=== PATIENT | male | born 1970 | race African-American/Black ===

== ENCOUNTER 2017-08-29 04:41 | Emergency (ER) | payer MEDICAID ==
[2017-08-29] MEDS ORDERED: FENTANYL CITRATE INJ/PF 100 MCG/2 ML AMPUL ONE (04:47)
[2017-08-29] MEDS ORDERED: CEFAZOLIN 1 GM/D5W RTU 1 GM/50 ML RTUPB IV ONE (04:47)
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
[2017-08-29] MEDS ORDERED: CEFAZOLIN 2 GM/D5W RTU 2 GM/50 ML RTUPB IV ONE (05:44)
[2017-08-29] MEDS ORDERED: DIPH/PERTUSS(ACELL)/TETANUS VAC/PF 0.5 ML SYR (>=10YO) IM ONE (05:45)
[2017-08-29] MEDS ORDERED: FENTANYL CITRATE INJ/PF 100 MCG/2 ML AMPUL IV ONE ×2 (05:45→06:01)
[2017-08-29 07:07] VITALS: BP 148/99
== END 2017-08-29 07:08 | disposition home or self-care (01) ==
LOC: ER 04:41
PROC: 2W3QX1Z Immobilization of Right Lower Leg using Splint (ICD-10-PCS; principal; 2017-08-29)
DX: S86.001A Unspecified injury of right Achilles tendon, initial encounter (principal); W34.00XA Accidental discharge from unspecified firearms or gun, initial encounter
CPT/HCPCS: 99283; 96372; 90471; 96365; 73590; 90715; 29515; J0690; J3010

== ENCOUNTER → 2017-09-22 | Outpatient (CLI) | payer MEDICAID ==
--- NOTE | 2017-09-22 20:17 | RADIOLOGY REPORT (SQ) ---
EXAM DESCRIPTION: U/S EXTREMITY NONVASCULAR COMP COMPLETED DATE/TIME: 09/22/2017 6:55 pm REASON FOR STUDY: FRACTRURE OF RIGHT LATERAL MALLEOLUS S82.64XA NONDISP FX OF LATERAL MALLEOLUS OF RIGHT FIBULA, IN COMPARISON: None. TECHNIQUE: Dynamic and static grayscale images acquired of the localized site of clinical concern an d recorded on PACS. Additional selected color Doppler and spectral images recorded. SITE OF CONCERN: Soft tissues of the left ankle. LIMITATIONS: None. FINDINGS: SKIN AND SUBCUTANEOUS TISSUES: Edema in the subcutaneous soft tissues. No focal fluid col lection. No masses. DEEP SOFT TISSUES/MUSCLES: No masses. No fluid collections. No edema. VASCULAR: No increased or decreased vascularity. No occlusions. OTHER: No other significant finding. IMPRESSION: SUBCUTANEOUS SOFT TISSUE EDEMA. NO EVIDENCE OF ABSCESS OR OTHER FOCAL FINDINGS. TECHNICAL DOCUMENTATION: JOB ID: [id number] [employer]- All Rights Reserved
== END ==
LOC: RAD 17:43
PROVIDERS: ATTEND Orthopaedic Surgery
DX: S82.64XA Nondisplaced fracture of lateral malleolus of right fibula, initial encounter for closed fracture (principal); X58.XXXA Exposure to other specified factors, initial encounter
CPT/HCPCS: 76881

== ENCOUNTER 2018-07-08 21:08 | Inpatient (IN) | payer MEDICAID ==
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
[2018-07-08 22:54] LABS: ABSOLUTE BASOPHILS # (AUTO) 0.1 10^3/uL (0.0-0.2); ABSOLUTE EOSINOPHILS # (AUTO) 0.1 10^3/uL (0.0-0.6); ABSOLUTE LYMPHOCYTES (AUTO) 2.1 10^3/uL (0.5-4.7); ABSOLUTE MONOCYTES (AUTO) 0.3 10^3/uL (0.1-1.4); ABSOLUTE NEUT (AUTO) 4.2 10^3/uL (1.7-8.2); BASOPHILS % (AUTO) 1.2 % (0-2); EOSINOPHILS % (AUTO) 1.4 % (0-6); HEMOGLOBIN 12.7 g/dL (13.5-17.0); MEAN CORPUSCULAR HEMOGLOBIN 27.7 pg (27.0-33.4); MEAN CORPUSCULAR HGB CONC 33.3 g/dL (32.0-36.0); MEAN CORPUSCULAR VOLUME 83 fl (80-97); MONOCYTES % (AUTO) 4.2 % (3-13); PLATELET COUNT 238 10^3/uL (150-450); RED BLOOD COUNT 4.57 10^6/uL (4.35-5.55); RED CELL DISTRIBUTION WIDTH 14.8 % (11.5-14.0); SEGMENTED NEUTROPHILS % (AUTO) 62.2 % (42-78); TOTAL CELLS COUNTED % (AUTO) 100 %; WHITE BLOOD COUNT 6.7 10^3/uL (4.0-10.5)
--- NOTE | 2018-07-08 23:07 | RADIOLOGY REPORT (SQ) ---
EXAM DESCRIPTION: XR CHEST 1 VIEW COMPLETED DATE/TME: 07/08/2018 22:17 CLINICAL HISTORY: 47 years Male, Cough and shortness of breath COMPARISON: 9.19.16 FINDINGS: Adequate lung volume, small left basilar opacity, mildly enlarged cardiac silhouette, left cardiac stimulator with leads. Intact bony thorax. IMPRESSION: Small left basilar atelectasis/pneumonia.
[2018-07-08 23:10] LABS: ANION GAP 8 (5-19); BLOOD UREA NITROGEN 9 mg/dL (7-20); CALCIUM 9.3 mg/dL (8.4-10.2); CARBON DIOXIDE 26 mmol/L (22-30); CHLORIDE 106 mmol/L (98-107); GLUCOSE 132 mg/dL (75-110); POTASSIUM 3.7 mmol/L (3.6-5.0); SODIUM 140.1 mmol/L (137-145)
[2018-07-08] MEDS ORDERED: LEVOFLOXACIN 750 MG TABLET PO ONE (23:19)
[2018-07-08] MEDS ORDERED: FUROSEMIDE INJ/PF 40 MG/4 ML SDV IV ONE (23:55)
[2018-07-09] MEDS ORDERED: CLONIDINE HCL 0.1 MG TABLET PO PRN (03:27)
[2018-07-09] MEDS ORDERED: MORPHINE SULFATE 10 MG/ML INJ IV PRN (03:31)
[2018-07-09] MEDS ORDERED: ONDANSETRON HCL INJ/PF 4 MG/2 ML SDV IV PRN (03:32)
[2018-07-09] MEDS ORDERED: ACETAMINOPHEN 325 MG TABLET PO PRN (03:32)
[2018-07-09] MEDS ORDERED: OXYCODONE-ACETAMINOPHEN 5-325 MG TABLET PO PRN (03:34)
[2018-07-09] MEDS ORDERED: ZOLPIDEM TARTRATE 5 MG TABLET PO PRN (03:36)
[2018-07-09] MEDS ORDERED: LEVOFLOXACIN 500 MG/D5W RTU 500 MG/100 ML RTUPB IV ONE (04:00)
[2018-07-09 05:10] LABS: ALANINE AMINOTRANSFERASE 79 U/L (21-72); ALBUMIN 3.9 g/dL (3.5-5.0); ALKALINE PHOSPHATASE 102 U/L (38-126); ANION GAP 10 (5-19); ASPARTATE AMINO TRANSFERASE 40 U/L (17-59); BILIRUBIN,DIRECT 0.3 mg/dL (0.0-0.4); BILIRUBIN,TOTAL 0.5 mg/dL (0.2-1.3); BLOOD UREA NITROGEN 10 mg/dL (7-20); CALCIUM 9.1 mg/dL (8.4-10.2); CARBON DIOXIDE 27 mmol/L (22-30); CHLORIDE 106 mmol/L (98-107); CHOLESTEROL 195.39 mg/dL (0-200); GLUCOSE 100 mg/dL (75-110); POTASSIUM 3.2 mmol/L (3.6-5.0); SODIUM 142.6 mmol/L (137-145); TOTAL PROTEIN 7.2 g/dL (6.3-8.2); TRIGLYCERIDES 127 mg/dL (<150)
[2018-07-09 05:14] LABS: MEAN CORPUSCULAR HEMOGLOBIN 27.6 pg (27.0-33.4); MEAN CORPUSCULAR HGB CONC 33.3 g/dL (32.0-36.0); MEAN CORPUSCULAR VOLUME 83 fl (80-97); PLATELET COUNT 221 10^3/uL (150-450); RED BLOOD COUNT 4.72 10^6/uL (4.35-5.55); RED CELL DISTRIBUTION WIDTH 14.3 % (11.5-14.0); WHITE BLOOD COUNT 6.9 10^3/uL (4.0-10.5)
[2018-07-09 05:24] LABS: CREATINE KINASE MB 0.62 ng/mL (<4.55); DIRECT LDL 124 mg/dL (<100); TROPONIN I 0.039 ng/mL
[2018-07-09] MEDS: LANSOPRAZOLE 30 MG TAB.RAP.DR PO SCH (09:52)
[2018-07-09] MEDS: DOCUSATE SODIUM 100 MG CAPSULE PO SCH (09:52)
[2018-07-09] MEDS: NICOTINE 21 MG/24 HR PATCH.TD24 TD SCH (09:52)
[2018-07-09] MEDS: ENOXAPARIN SODIUM INJ 40 MG/0.4 ML DISP.SYRIN SUBCUT SCH ×2 (09:52→10:38)
[2018-07-09] MEDS: FUROSEMIDE INJ/PF 20 MG/2 ML SDV IV SCH (09:53)
[2018-07-09 11:29] LABS: CREATINE KINASE MB 0.52 ng/mL (<4.55); TROPONIN I 0.04 ng/mL
--- NOTE | 2018-07-09 16:31 | PDOC H&P ---
History of Present Illness Admission Date/PCP: 07/09/18 00:08 THAO MARTINEZ Patient complains of: Dyspnea, Chest pain- pleuritic, cough with congestion for 3 days. History of Present Illness: LOLY SHEIKH is a 47 year old male with hx of HTN/Hyperlipidemia/Chronic ischemic heart disease s.p ICD/Pacemaker/Back pain/OA/Depression/Chronic smoker , who started having dyspnea, pleuritic chest pain, cough with congestion about 3 days ago. Hed denied fever, palpitations, dizziness, syncope, leg swelling. On account of worsening of symptoms, he came to ER for evaluation and and mgt. Past Medical History Cardiac Medical History: Reports: Myocardial Infarction - left ventracal enlargement, Hyperlipidema, Hypertension Musculoskeltal Medical History: Reports: Arthritis Past Surgical History Past Surgical History: Reports: Orthopedic Surgery - right shoulder / right ankle Social History Smoking Status: Current Every Day Smoker Cigarettes Packs Per Day: 1 Number of Years Smokin Last Time Smoked: 07/08/2018 Frequency of Alcohol Use: Heavy Drugs: Marijuana Hx Prescription Drug Abuse: No Family History Family History: Reviewed & Not Pertinent Parental Family History Reviewed: Yes Children Family History Reviewed: Yes Sibling(s) Family History Reviewed.: Yes Medication/Allergy Home Medications: Amlodipine Besylate [Norvasc 10 mg Tablet] 10 mg PO DAILY 07/09/18 Butalb/Acetaminophen/Caffeine [Ayvrih-Tfdlzhro-Snqq 50-325-40] 1 tab PO Q12HP PRN 07/09/18 Carvedilol [Coreg 25 mg Tablet] 25 mg PO Q12 07/09/18 Furosemide [Lasix 20 mg Tablet] 20 mg PO DAILYP PRN 07/09/18 Lisinopril [Prinivil] 40 mg PO DAILY 07/09/18 Oxycodone HCl/Acetaminophen [Endocet 7.5-325 mg Tablet] 1 tab PO Q6HP PRN Rosuvastatin Calcium [Crestor 5 mg Tablet] 5 mg PO DAILY 07/09/18 Spironolactone [Aldactone 25 mg Tablet] 25 mg PO DAILY 07/09/18 Zolpidem Tartrate [Ambien 5 mg Tablet] 5 mg PO QHS 07/09/18 Allergies/Adverse Reactions: acetaminophen [From Vicodin] Allergy (Verified 01/30/14 15:28) aspirin [Aspirin] Allergy (Verified 01/30/14 15:28) hydrocodone bitartrate [From Vicodin] Allergy (Verified 01/30/14 15:28) ibuprofen [From Motrin] Allergy (Verified 01/30/14 15:28) Penicillins Allergy (Verified 01/30/14 15:28) Review of Systems Constitutional: PRESENT: as per HPI Eyes: PRESENT: as per HPI Ears: PRESENT: as per HPI Nose, Mouth, and Throat: PRESENT: as per HPI Cardiovascular: PRESENT: chest pain, dyspnea on exertion Respiratory: PRESENT: cough Gastrointestinal: PRESENT: as per HPI Genitourinary: PRESENT: as per HPI Integumentary: PRESENT: as per HPI Neurological: PRESENT: as per HPI Psychiatric: PRESENT: as per HPI Hematologic/Lymphatic: PRESENT: as per HPI Physical Exam Vital Signs: Temp Pulse Resp BP Pulse Ox 98.5 F 71 18 120/86 H 95 07/09/18 11:55 07/09/18 14:00 07/09/18 11:55 07/09/18 11:55 07/09/18 11:55 Intake & Output 07/08/18 07/09/18 07/10/18 06:59 06:59 06:59 Intake Total 575 Output Total 800 Balance -800 575 Weight 87.4 kg Results Laboratory Results: 07/09/18 04:30 07/09/18 04:30 07/09/18 07/09/18 07/09/18 04:30 04:30 04:30 WBC 6.9 RBC 4.72 Hgb 13.0 L Hct 39.0 MCV 83 MCH 27.6 MCHC 33.3 RDW 14.3 H Plt Count 221 Sodium 142.6 Potassium 3.2 L Chloride 106 Carbon Dioxide 27 Anion Gap 10 BUN 10 Creatinine 1.08 Est GFR ( Amer) > 60 Est GFR (Non-Af Amer) > 60 Glucose 100 Calcium 9.1 Total Bilirubin 0.5 AST 40 ALT 79 H Alkaline Phosphatase 102 Total Protein 7.2 Albumin 3.9 Triglycerides 127 Cholesterol 195.39 LDL Cholesterol Direct 124 H VLDL Cholesterol 25.0 HDL Cholesterol 35 L TSH 1.26 07/09/18 07/09/18 07/09/18 04:30 04:30 10:40 Creatine Kinase 121 103 CK-MB (CK-2) 0.62 Troponin I 0.039 07/09/18 10:40 Creatine Kinase CK-MB (CK-2) 0.52 Troponin I 0.040 Impressions: Chest X-Ray 07/08/18 22:17 IMPRESSION: Small left basilar atelectasis/pneumonia. Assessment & Plan - Diagnosis (1) Pneumonia Qualifiers: Pneumonia type: due to other aerobic Gram-negative bacteria Laterality: left Lung location: lower lobe of lung Qualified Code(s): J15.6 - Pneumonia due to other Gram-negative bacteria Plan: Ct with Levaquin 500 mg daily IV; Tyenol 650 mg q6h prn po; Sputum culture if possible. (2) Acute pulmonary edema Is this a current diagnosis for this admission?: Yes Plan: Ct with Lasix 20 mg daily IV; Morphine 2 mg q4h IV prn; Oxygen by N/C 2 L/min to keep saturation >92%; F/U ECHO report; F/U cardiology consult with Dr Macdonald. (3) Hypertension Qualifiers: Hypertension type: essential hypertension Qualified Code(s): I10 - Essential (primary) hypertension Is this a current diagnosis for this admission?: Yes Plan: Ct with Lisinopril 20 mg qd po; Coreg 25 mg BID PO;Amlodipine 10 mg qd pO; Clonidine 0.1 mg q4h prn po; 2 g sodium diet. (4) Hyperlipidemia Qualifiers: Hyperlipidemia type: mixed hyperlipidemia Qualified Code(s): E78.2 - Mixed hyperlipidemia Is this a current diagnosis for this admission?: Yes Plan: Switch to Atorvastatin 10 mg qhs po since we do not have Crestor in our formulary; 200 mg cholesterol diet. (5) Chronic ischemic heart disease Is this a current diagnosis for this admission?: Yes Plan: Pt is s.p ICD/Pacemaker; Ct with Spironolactone 25 mg qd po; F/u ECHO report; f /u human resources operations specialist, Dr Macdonald. (6) Back pain Qualifiers: Back pain laterality: unspecified Is this a current diagnosis for this admission?: Yes Plan: Ct with Percocet 5/325 mg q6h po prn. (7) Depression Qualifiers: Depression Type: unspecified Qualified Code(s): F32.9 - Major depressive disorder, single episode, unspecified Is this a current diagnosis for this admission?: Yes Plan: Ct with Zoloft 50 mg qd po. (8) Smoker Is this a current diagnosis for this admission?: Yes Plan: Nicotine patch 21 mg daily. (9) DVT prophylaxis Is this a current diagnosis for this admission?: Yes Plan: Ct with Lovenox 40 mg daily subcut. SCD. - Time Time Spent: 30 to 50 Minutes Smoking Cessation Education: 3 to 10 minutes Medications reviewed and adjusted accordingly: Yes Anticipated discharge: Home Within: within 72 hours - Inpatient Certification Medical Necessity: Failure to Improve With Outpatient Therapy, Need Close Monitoring Due to Risk of Patient Decompensation, Need For Continuous Telemetry Monitoring, Need for Pain Control, Need for IV Antibiotics, Risk of Complication if Not Cared For in Hospital, Risk of Diagnosis Which Will Require Inpatient Eval/Care/Monitoring
[2018-07-09] MEDS ORDERED: POTASSI CL 20 MEQ/50 ML RIDER 20 MEQ/50 ML RTUPB IV SCH (17:30)
[2018-07-09] MEDS ORDERED: POTASSIUM CHLORIDE 10 MEQ CAPSULE.ER PO ONE (19:00)
--- NOTE | 2018-07-09 21:06 | EKG REPORT ---
SEVERITY:- ABNORMAL ECG - SINUS RHYTHM PROBABLE LEFT ATRIAL ABNORMALITY LVH WITH SECONDARY REPOLARIZATION ABNORMALITY : Confirmed by: Kaia Flores MD 09-Jul-2018 21:05:57
--- NOTE | 2018-07-09 21:06 | EKG REPORT ---
SEVERITY:- ABNORMAL ECG - SINUS RHYTHM ATRIAL PREMATURE COMPLEX PROBABLE LEFT ATRIAL ABNORMALITY LVH WITH SECONDARY REPOLARIZATION ABNORMALITY BORDERLINE PROLONGED QT INTERVAL : Confirmed by: Kaia Flores MD 09-Jul-2018 21:05:52
--- NOTE | 2018-07-09 21:06 | EKG REPORT ---
SEVERITY:- ABNORMAL ECG - SINUS RHYTHM PROBABLE LEFT ATRIAL ABNORMALITY LVH WITH SECONDARY REPOLARIZATION ABNORMALITY BORDERLINE PROLONGED QT INTERVAL : Confirmed by: Kaia Flores MD 09-Jul-2018 21:06:01
[2018-07-09] MEDS: CARVEDILOL 12.5 MG TABLET PO SCH (21:44)
[2018-07-09] MEDS ORDERED: ATORVASTATIN CALCIUM 10 MG TABLET PO SCH (22:00)
[2018-07-10 05:03] LABS: ABSOLUTE BASOPHILS # (AUTO) 0.1 10^3/uL (0.0-0.2); ABSOLUTE EOSINOPHILS # (AUTO) 0.2 10^3/uL (0.0-0.6); ABSOLUTE LYMPHOCYTES (AUTO) 2.2 10^3/uL (0.5-4.7); ABSOLUTE MONOCYTES (AUTO) 0.6 10^3/uL (0.1-1.4); ABSOLUTE NEUT (AUTO) 4.5 10^3/uL (1.7-8.2); EOSINOPHILS % (AUTO) 3.1 % (0-6); HEMATOCRIT 39.5 % (37.9-51.0); HEMOGLOBIN 13.3 g/dL (13.5-17.0); LYMPHOCYTES % (AUTO) 28.8 % (13-45); MEAN CORPUSCULAR HEMOGLOBIN 27.8 pg (27.0-33.4); MEAN CORPUSCULAR HGB CONC 33.6 g/dL (32.0-36.0); MEAN CORPUSCULAR VOLUME 83 fl (80-97); MONOCYTES % (AUTO) 7.8 % (3-13); PLATELET COUNT 229 10^3/uL (150-450); RED BLOOD COUNT 4.79 10^6/uL (4.35-5.55); RED CELL DISTRIBUTION WIDTH 14.3 % (11.5-14.0); SEGMENTED NEUTROPHILS % (AUTO) 59.3 % (42-78); TOTAL CELLS COUNTED % (AUTO) 100 %; WHITE BLOOD COUNT 7.7 10^3/uL (4.0-10.5)
[2018-07-10 05:28] LABS: ALANINE AMINOTRANSFERASE 59 U/L (21-72); ALBUMIN 3.7 g/dL (3.5-5.0); ALKALINE PHOSPHATASE 89 U/L (38-126); ANION GAP 9 (5-19); ASPARTATE AMINO TRANSFERASE 25 U/L (17-59); BILIRUBIN,DIRECT 0.4 mg/dL (0.0-0.4); BILIRUBIN,TOTAL 0.4 mg/dL (0.2-1.3); BLOOD UREA NITROGEN 12 mg/dL (7-20); CALCIUM 9.4 mg/dL (8.4-10.2); CARBON DIOXIDE 26 mmol/L (22-30); CHLORIDE 108 mmol/L (98-107); GLUCOSE 109 mg/dL (75-110); POTASSIUM 3.9 mmol/L (3.6-5.0); TOTAL PROTEIN 6.6 g/dL (6.3-8.2)
[2018-07-10] MEDS ORDERED: LEVOFLOXACIN 500 MG/D5W RTU 500 MG/100 ML RTUPB IV SCH (08:00)
[2018-07-10] MEDS: DOCUSATE SODIUM 100 MG CAPSULE PO SCH (09:20)
[2018-07-10] MEDS: LANSOPRAZOLE 30 MG TAB.RAP.DR PO SCH (09:20)
[2018-07-10] MEDS: FUROSEMIDE INJ/PF 20 MG/2 ML SDV IV SCH (09:21)
[2018-07-10] MEDS: CARVEDILOL 12.5 MG TABLET PO SCH (09:21)
[2018-07-10] MEDS: NICOTINE 21 MG/24 HR PATCH.TD24 TD SCH (09:22)
[2018-07-10] MEDS: ENOXAPARIN SODIUM INJ 40 MG/0.4 ML DISP.SYRIN SUBCUT SCH (09:22)
[2018-07-10] MEDS ORDERED: SERTRALINE HCL 50 MG TABLET PO SCH (10:00)
[2018-07-10] MEDS ORDERED: LISINOPRIL 10 MG TABLET PO SCH (10:00)
[2018-07-10] MEDS ORDERED: AMLODIPINE BESYLATE 10 MG TABLET PO SCH (10:00)
[2018-07-10] MEDS ORDERED: SPIRONOLACTONE 25 MG TABLET PO SCH (10:00)
[2018-07-10 11:07] VITALS: BP 125/90
--- NOTE | 2018-07-10 13:08 | PDOC DISCHARGE SUMMARY ---
General - Admit/Disc Date/PCP Admission Date/Primary Care Provider: 07/09/18 00:08 THAO MARTINEZ Discharge Date: 07/10/18 - Discharge Diagnosis (1) Chronic ischemic heart disease Is this a current diagnosis for this admission?: Yes (2) Hyperlipidemia Is this a current diagnosis for this admission?: Yes (4) Smoker Is this a current diagnosis for this admission?: Yes - Additional Information Discharge Diet: As Tolerated Discharge Activity: Activity As Tolerated Prescriptions: Levofloxacin [Levaquin 750 mg Tablet] 750 mg PO DAILY #5 tablet Home Medications: Amlodipine Besylate [Norvasc 10 mg Tablet] 10 mg PO DAILY 07/09/18 Butalb/Acetaminophen/Caffeine [Iwrrcw-Tjjzlirf-Thad 50-325-40] 1 tab PO Q12HP PRN 07/09/18 Carvedilol [Coreg 25 mg Tablet] 25 mg PO Q12 07/09/18 Furosemide [Lasix 20 mg Tablet] 20 mg PO DAILYP PRN 07/09/18 Lisinopril [Prinivil] 40 mg PO DAILY 07/09/18 Oxycodone HCl/Acetaminophen [Endocet 7.5-325 mg Tablet] 1 tab PO Q6HP PRN Rosuvastatin Calcium [Crestor 5 mg Tablet] 5 mg PO DAILY 07/09/18 Spironolactone [Aldactone 25 mg Tablet] 25 mg PO DAILY 07/09/18 Zolpidem Tartrate [Ambien 5 mg Tablet] 5 mg PO QHS 07/09/18 Levofloxacin [Levaquin 750 mg Tablet] 750 mg PO DAILY #5 tablet 07/10/18 Nicotine [Nicoderm 21 mg/24 Hr Transderm Patch] 1 each TD DAILY patch.td24 History of Present Illness History of Present Illness: LOLY SHEIKH is a 47 year old male with hx of HTN/Hyperlipidemia/Chronic ischemic heart disease s.p ICD/Pacemaker/Back pain/OA/Depression/Chronic smoker , who started having dyspnea, pleuritic chest pain, cough with congestion about 3 days ago. Hed denied fever, palpitations, dizziness, syncope, leg swelling. On account of worsening of symptoms, he came to ER for evaluation and and mgt. Hospital Course Hospital Course: (1) Pneumonia Patient received IV Levaquin and will be discharged on p.o. Levaquin for 5 more days. (2) Acute pulmonary edema Patient received IV Lasix and will be discharged on his home dose of p.o. Lasix (3) Hypertension Ct with Lisinopril 20 mg qd po; Coreg 25 mg BID PO;Amlodipine 10 mg qd pO; Clonidine 0.1 mg q4h prn po; 2 g sodium diet. (4) Hyperlipidemia Switched to Atorvastatin 10 mg qhs po since we do not have Crestor in our formulary; 200 mg cholesterol diet. Resume Crestor on discharge (5) Chronic ischemic heart disease Pt is s.p ICD/Pacemaker; Ct with Spironolactone 25 mg qd po; F/u ECHO report; f /u cafeteria attendant, Dr Macdonald outpatient. (6) Back pain Ct with Percocet 5/325 mg q6h po prn. (7) Depression Ct with Zoloft 50 mg qd po. (8) Smoker Nicotine patch 21 mg daily. Patient improved and stable for discharge Physical Exam Vital Signs: Temp Pulse Resp BP Pulse Ox 97.9 F 81 16 125/90 H 95 07/10/18 11:06 07/10/18 11:06 07/10/18 11:06 07/10/18 11:06 07/10/18 11:06 Intake & Output 07/09/18 07/10/18 07/11/18 06:59 06:59 06:59 Intake Total 625 777 Output Total 800 Balance -800 625 777 Weight 192 lb 10.944 oz 193 lb 1.999 oz General appearance: PRESENT: no acute distress, well-developed, well-nourished Head exam: PRESENT: atraumatic, normocephalic Eye exam: PRESENT: conjunctiva pink, EOMI, PERRLA. ABSENT: scleral icterus Ear exam: PRESENT: normal external ear exam Mouth exam: PRESENT: moist, tongue midline Neck exam: ABSENT: carotid bruit, JVD, lymphadenopathy, thyromegaly Respiratory exam: PRESENT: clear to auscultation bessy. ABSENT: rales, rhonchi, wheezes Cardiovascular exam: PRESENT: RRR. ABSENT: diastolic murmur, rubs, systolic murmur Pulses: PRESENT: normal dorsalis pedis pul GI/Abdominal exam: PRESENT: normal bowel sounds, soft. ABSENT: distended, guarding, mass, organolmegaly, rebound, tenderness Rectal exam: PRESENT: deferred Extremities exam: PRESENT: full ROM. ABSENT: calf tenderness, clubbing, pedal edema Neurological exam: PRESENT: alert, awake, oriented to person, oriented to place , oriented to time, oriented to situation, CN II-XII grossly intact. ABSENT: motor sensory deficit Psychiatric exam: PRESENT: appropriate affect, normal mood. ABSENT: homicidal ideation, suicidal ideation Results Laboratory Results: 07/10/18 04:53 07/10/18 04:53 07/10/18 07/10/18 04:53 04:53 WBC 7.7 RBC 4.79 Hgb 13.3 L Hct 39.5 MCV 83 MCH 27.8 MCHC 33.6 RDW 14.3 H Plt Count 229 Seg Neutrophils % 59.3 Lymphocytes % 28.8 Monocytes % 7.8 Eosinophils % 3.1 Basophils % 1.0 Absolute Neutrophils 4.5 Absolute Lymphocytes 2.2 Absolute Monocytes 0.6 Absolute Eosinophils 0.2 Absolute Basophils 0.1 Sodium 143.0 Potassium 3.9 Chloride 108 H Carbon Dioxide 26 Anion Gap 9 BUN 12 Creatinine 1.09 Est GFR ( Amer) > 60 Est GFR (Non-Af Amer) > 60 Glucose 109 Calcium 9.4 Total Bilirubin 0.4 AST 25 ALT 59 Alkaline Phosphatase 89 Total Protein 6.6 Albumin 3.7 07/09/18 07/09/18 07/09/18 04:30 04:30 10:40 Creatine Kinase 121 103 CK-MB (CK-2) 0.62 Troponin I 0.039 07/09/18 10:40 Creatine Kinase CK-MB (CK-2) 0.52 Troponin I 0.040 Impressions: Chest X-Ray 07/08/18 22:17 IMPRESSION: Small left basilar atelectasis/pneumonia. Qualifiers - * PATIENT BEING DISCHARGED WITH ANY OF THE FOLLOWING DIAGNOSIS: Heart Failure HF Pt being discharged on ACEI for LVEF less than 40%?: Yes HF Pt being discharged on ARBS for LVEF less than 40%?: Yes HF Pt with Afib discharged with Warfarin?: No Reason(s) for not prescribing Warfarin:: Not indicated HF Pt discharged on evidence-based Beta Ann:: Yes
--- NOTE | 2018-07-10 14:23 | XCELERA REPORT ---
[address] [address] Transthoracic Echocardiogram Report Name: LOLY SHEIKH Age: 47 yrs Gender: Male : 1970 Patient Status: Inpatient Patient Location: [address] [place] [address] Study Date: 07/09/2018 09:57 AM Height: 69 in Weight: 190 lb BSA: 2.0 m2 Procedure: A two-dimensional transthoracic echocardiogram with color flow and Doppler was performed. Study Quality: Fair. Reason For Study: pna History: CARDIOMYOPATHY. Ordering Physician: THAO MARTINEZ Performed By: Jacob Wilson Interpretation Summary The left ventricle is moderately to severly dilated. There is normal left ventricular wall thickness. LV EF is 30% Left ventricular systolic function is severely reduced. There is severe global hypokinesis of the left ventricle. There is no thrombus. The right ventricle is borderline dilated. There is a pacemaker lead in the right ventricle. The left atrium is moderately dilated. The interatrial septum is intact with no evidence for an atrial septal defect. There is no evidence of mitral valve prolapse. There is no mitral valve stenosis. There is a moderate amount of mitral regurgitation There is no LVOT obstruction. No aortic regurgitation is present. There is no tricuspid stenosis. There is a mild amount of tricuspid regurgitation There is moderate pulmonary hypertension by echo RVSP is 52 to 57 mm of Hg , with RA mean of 5 to 10. There is no pulmonic valvular stenosis. There is a mild amount of pulmonic regurgitation The aortic root is mildly dilated The inferior vena cava appeared normal and decreased > 50% with respiration (RAP 5-10 mmHg) There is no pericardial effusion. MMode/2D Measurements & Calculations RVDd: 3.0 cm LVIDd: 7.6 cm FS: 18.1 % Ao root diam: 3.9 cm IVSd: 0.82 cm LVIDs: 6.2 cm EDV(Teich): 303.0 ml Ao root area: 11.9 cm2 LVPWd: 1.2 cm ESV(Teich): 192.7 ml LA dimension: 4.7 cm EF(Teich): 36.4 % LVOT diam: 2.2 cm LVOT area: 4.0 cm2 Doppler Measurements & Calculations MV E max ruby: MV P1/2t max ruby: Ao V2 max: LV V1 max P.2 cm/sec 76.4 cm/sec 86.9 cm/sec 1.7 mmHg MV A max ruby: MV P1/2t: 65.6 msec Ao max PG: LV V1 max: 27.4 cm/sec MVA(P1/2t): 3.4 cm2 3.0 mmHg 65.1 cm/sec MV E/A: 2.5 MV dec slope: LEÓN(V,D): 3.0 cm2 LV dP/dt: 909.0 mmHg/s 341.1 cm/sec2 MV dec time: 0.24 sec PA V2 max: PI end-d ruby: TR max ruby: MV P1/2t-pr_phl: 48.7 cm/sec 141.2 cm/sec 342.4 cm/sec 65.6 msec PA max PG: TR max P.95 mmHg 46.9 mmHg Left Ventricle The left ventricle is moderately to severly dilated. There is normal left ventricular wall thickness. LV EF is 30%. Left ventricular systolic function is severely reduced. There is severe global hypokinesis of the left ventricle. There is no thrombus. There is no ventricular septal defect visualized. Right Ventricle The right ventricle is borderline dilated. There is a pacemaker lead in the right ventricle. Atria The right atrium is borderline dilated. The left atrium is moderately dilated. The interatrial septum is intact with no evidence for an atrial septal defect. Mitral Valve There is no evidence of mitral valve prolapse. There is no vegetation seen on the mitral valve. There is no mitral valve stenosis. There is a moderate amount of mitral regurgitation. Aortic Valve There is no aortic valvular vegetation. There is no aortic valve stenosis. There is no LVOT obstruction. No aortic regurgitation is present. Tricuspid Valve There is no tricuspid stenosis. There is a mild amount of tricuspid regurgitation. There is moderate pulmonary hypertension by echo. RVSP is 52 to 57 mm of Hg , with RA mean of 5 to 10. Pulmonic Valve There is no pulmonic valvular stenosis. There is a mild amount of pulmonic regurgitation. Great Vessels The aortic root is mildly dilated. The inferior vena cava appeared normal and decreased > 50% with respiration (RAP 5-10 mmHg). Effusions There is no pericardial effusion. : THAO MARTINEZ > Mark, Kaia
== END 2018-07-10 14:46 | disposition home or self-care (01) | DRG 194 ==
LOC: ER 21:08 → EH 07-09 00:08 → 3S 07-09 04:03
PROVIDERS: ADMIT Internal Medicine; ATTEND Internal Medicine
DX: J18.9 Pneumonia, unspecified organism (principal); I50.30 Unspecified diastolic (congestive) heart failure; I11.0 Hypertensive heart disease with heart failure; E78.2 Mixed hyperlipidemia; M54.9 Dorsalgia, unspecified; F32.9 Major depressive disorder, single episode, unspecified; F17.210 Nicotine dependence, cigarettes, uncomplicated; I25.2 Old myocardial infarction; Z95.0 Presence of cardiac pacemaker
CPT/HCPCS: 36415; 71045; 80048; 80053; 80061; 82550; 82553; 83880; 84443; 84484; 85025; 85027; 93005; 93010; 93306; 99285; J1650; J1940; J1956; J3480

== ENCOUNTER 2019-05-24 09:15 | Inpatient (IN) | payer MEDICAID ==
[2019-05-24] MEDS ORDERED: MORPHINE SULFATE 10 MG/ML INJ IV ONE (09:35)
[2019-05-24] MEDS ORDERED: ONDANSETRON HCL INJ/PF 4 MG/2 ML SDV IV ONE (09:35)
[2019-05-24 09:50] LABS: ABSOLUTE BASOPHILS # (AUTO) 0.1 10^3/uL (0.0-0.2); ABSOLUTE LYMPHOCYTES (AUTO) 1.7 10^3/uL (0.5-4.7); ABSOLUTE MONOCYTES (AUTO) 0.5 10^3/uL (0.1-1.4); ABSOLUTE NEUT (AUTO) 10.6 10^3/uL (1.7-8.2); BASOPHILS % (AUTO) 0.6 % (0-2); EOSINOPHILS % (AUTO) 0.2 % (0-6); HEMOGLOBIN 15.6 g/dL (13.5-17.0); LYMPHOCYTES % (AUTO) 13.4 % (13-45); MEAN CORPUSCULAR HEMOGLOBIN 27.7 pg (27.0-33.4); MEAN CORPUSCULAR HGB CONC 32.6 g/dL (32.0-36.0); MEAN CORPUSCULAR VOLUME 85 fl (80-97); MONOCYTES % (AUTO) 3.5 % (3-13); PLATELET COUNT 300 10^3/uL (150-450); RED BLOOD COUNT 5.65 10^6/uL (4.35-5.55); RED CELL DISTRIBUTION WIDTH 15.4 % (11.5-14.0); SEGMENTED NEUTROPHILS % (AUTO) 82.3 % (42-78); TOTAL CELLS COUNTED % (AUTO) 100 %; WHITE BLOOD COUNT 12.9 10^3/uL (4.0-10.5)
--- NOTE | 2019-05-24 09:53 | ER Document Report ---
ED General - General Chief Complaint: Breathing Difficulty Stated Complaint: TROUBLE BREATHING Time Seen by Provider: 05/24/19 09:50 Primary Care Provider: THAO MARTINEZ MD [Primary Care Provider] - Follow up as needed Notes: 48-year-old male with history of hypertension cardiomyopathy presents with severe left flank pain rating into his chest. Patient stated this started suddenly 2 days ago has been progressively getting worse he denies any hematuria or dysuria states he does feel short of breath. The pain is rating into his chest he describes as sharp is worse with movement and taking a deep breath. Patient is tearful and anxious. Patient describes the pain is severe movement makes it worse nothing really makes it better TRAVEL OUTSIDE OF THE [place] IN LAST 30 DAYS: No - Related Data Allergies/Adverse Reactions: acetaminophen [From Vicodin] Allergy (Verified 05/24/19 09:15) aspirin [Aspirin] Allergy (Verified 05/24/19 09:15) hydrocodone bitartrate [From Vicodin] Allergy (Verified 05/24/19 09:15) ibuprofen [From Motrin] Allergy (Verified 05/24/19 09:15) Penicillins Allergy (Verified 05/24/19 09:15) Past Medical History - Social History Smoking Status: Current Every Day Smoker Drug Abuse: Marijuana, Other Family History: Reviewed & Not Pertinent - Past Medical History Cardiac Medical History: Reports: Hx Heart Attack - left ventracal enlargement, Hx Hypercholesterolemia, Hx Hypertension Renal/ Medical History: Denies: Hx Peritoneal Dialysis Musculoskeletal Medical History: Reports Hx Arthritis Past Surgical History: Reports: Hx Orthopedic Surgery - right shoulder / right ankle - Immunizations Hx Diphtheria, Pertussis, Tetanus Vaccination: Yes Review of Systems - Review of Systems Constitutional: denies: Chills, Fever Cardiovascular: Chest pain. denies: Edema Respiratory: Hurts to breathe, Short of breath Gastrointestinal: Abdominal pain. denies: Nausea, Other Genitourinary: Flank pain. denies: Dysuria, Hematuria, Urgency Musculoskeletal: Back pain Neurological/Psychological: denies: Headaches, Numbness, Tingling -: Yes All other systems reviewed and negative Physical Exam - Vital signs Vitals: Resp BP Pulse Ox 37 H 174/126 H 96 05/24/19 09:32 05/24/19 09:32 05/24/19 09:32 - Notes Notes: GENERAL_APPEARANCE: well_nourished, alert, cooperative, anxious and hyperventilating VITALS: reviewed, see vital signs table. HEAD: no_swelling\tenderness on the head. EYES: PERRL, EOMI, conjunctiva_clear. NOSE: no_nasal_discharge. MOUTH: (-)decreased moisture. THROAT: no_tonsilar_inflammation, no_airway_obstruction. no_lymphadenopathy NECK: supple, no_neck_tenderness, (-)thyromegaly. BACK: Left CVA_back_tenderness. CHEST_WALL: Posterior chest and flank no vesicles noted no crepitus no subcu emphysema LUNGS: no_wheezing, no_rales, no_rhonchi, (-)accessory muscle use, good air exchange bilateral. HEART: normal_rate, normal_rhythm, normal_S1, normal_S2, (-)S3, (-)S4, no_murmur, no_rub. ABDOMEN: normal_BS, soft, no_abd_tenderness, (-)guarding, (-)rebound, no_organomegaly, no_abd_masses. EXTREMITIES: strength 5/5 in all_extremities, good pulses in all_extremities, no_swelling\tenderness in the extremities, no_edema. SKIN: warm, dry, good_color, no_rash. MENTAL_STATUS: speech_clear, oriented_X_3, paniced_affect, responds_appropriately to questions. NEURO: Neg Motor or Sensory Deficits on exam, CN 2-12 intact, DTR 2+ symmetric x 4, No cerbellar signs Course - Re-evaluation Re-evalutation: 05/24/19 09:53 48-year-old male who presents with left flank pain rating to his chest patient is very panic and anxious. His EKG shows LVH with strain he does have a ICD likely due to his cardiomyopathy. We will scan his chest and abdomen to rule out aortic apology versus PE versus kidney stone. Patient is very anxious and hyperventilating. We will give him something for pain 05/24/19 14:11 Repeat EKG is unchanged. The patient has a classic LVH with strain pattern. Patient has been given labetalol and lisinopril. Blood pressures coming down but still high. Patient is still being very uncooperative he threw the urinal at some of our staff. He is cursing fed him here for a lot of the day but he is been very minimally cooperative that is why I gave him some IV Haldol. The patient denied any drug use but his drug screen is positive for many drugs including cocaine. He is not taking his blood pressure medicine normally. BNP is elevated likely due to patient's uncontrolled hypertension and cardiomyopathy. Still waiting for repeat troponin. I will sign the patient out to the oncoming emergency physician for disposition. And reevaluation. - Vital Signs Vital signs: Temp Pulse Resp BP Pulse Ox 97.6 F 45 H 110/93 H 98 05/24/19 10:11 05/24/19 11:30 05/24/19 11:30 05/24/19 11:30 - Laboratory Result Diagrams: 05/24/19 09:39 05/24/19 09:39 Laboratory results interpreted by me: 05/24/19 05/24/19 05/24/19 09:35 09:39 09:39 WBC 12.9 H RBC 5.65 H RDW 15.4 H Seg Neutrophils % 82.3 H Absolute Neutrophils 10.6 H BUN 21 H Glucose 139 H POC Glucose 133 H Total Bilirubin 1.8 H NT-Pro-B Natriuret Pep Urine Protein Urine Urobilinogen 05/24/19 05/24/19 09:39 13:28 WBC RBC RDW Seg Neutrophils % Absolute Neutrophils BUN Glucose POC Glucose Total Bilirubin NT-Pro-B Natriuret Pep 94968 H Urine Protein 100 H Urine Urobilinogen 2.0 H - Diagnostic Test Radiology reviewed: Reports reviewed Radiology results interpreted by me: 05/24/19 14:11 Abdomen/Pelvis CT 05/24/19 09:34 IMPRESSION: Reflux of contrast within the hepatic veins suggestive of right heart dysfunction. No other evidence of acute intra-abdominal/pelvic process. Please see same-day chest CT for findings above the diaphragm. Chest/Abdomen CTA 05/24/19 09:34 IMPRESSION: 1. No evidence of pulmonary embolus. 2. Markedly enlarged heart. Bilateral perihilar ground-glass opacities, likely edema although atypical infection is not entirely excluded. No significant effusion. - EKG Interpretation by In EKG shows normal: Sinus rhythm Rate: Normal [place]/QRS: Left axis deviation Voltage: Consistant with LVH When compared to previous EKG there are: Other Additional EKG results interpreted by me: 05/24/19 14:13 LVH with strain pattern Discharge - Discharge Clinical Impression: Chronic ischemic heart disease Hypertension Qualifiers: Hypertension type: unspecified secondary hypertension Qualified Code(s): I15.9 - Secondary hypertension, unspecified; I15 - Secondary hypertension Cocaine intoxication Qualifiers: Complication of substance-induced condition: uncomplicated Qualified Code(s): F14.920 - Cocaine use, unspecified with intoxication, uncomplicated Condition: Fair Disposition: OTHER Referrals: THAO MARTINEZ MD [Primary Care Provider] - Follow up as needed
[2019-05-24 10:14] LABS: ALBUMIN 4.3 g/dL (3.5-5.0); ALCOHOL < 10 mg/dL (NONE DETECTED); ALKALINE PHOSPHATASE 126 U/L (38-126); ANION GAP 14 (5-19); ASPARTATE AMINO TRANSFERASE 36 U/L (17-59); BILIRUBIN,DIRECT 0.3 mg/dL (0.0-0.4); BILIRUBIN,TOTAL 1.8 mg/dL (0.2-1.3); BLOOD UREA NITROGEN 21 mg/dL (7-20); CALCIUM 9.8 mg/dL (8.4-10.2); CARBON DIOXIDE 23 mmol/L (22-30); CHLORIDE 104 mmol/L (98-107); CREATINE KINASE 109 U/L (55-170); GLUCOSE 139 mg/dL (75-110); POTASSIUM 4.5 mmol/L (3.6-5.0); TOTAL PROTEIN 7.1 g/dL (6.3-8.2)
[2019-05-24 10:30] LABS: TROPONIN I 0.038 ng/mL
[2019-05-24] MEDS ORDERED: LABETALOL HCL INJ 20 MG/4 ML DISP.SYRIN IV ONE (10:32)
[2019-05-24] MEDS ORDERED: HALOPERIDOL LACTATE INJ 5 MG/1 ML VIAL IV ONE (11:43)
[2019-05-24] MEDS ORDERED: LISINOPRIL 10 MG TABLET PO ONE (13:30)
[2019-05-24 13:40] LABS: APPEARANCE,URINE CLEAR; BILIRUBIN,URINE NEGATIVE (NEGATIVE); COLOR,URINE AMBER; GLUCOSE, URINE NEGATIVE (NEGATIVE); KETONES,URINE NEGATIVE (NEGATIVE); LEUKOCYTE ESTERASE,URINE NEGATIVE (NEGATIVE); NITRITE,URINE NEGATIVE (NEGATIVE); PROTEIN,URINE 100 mg/dL (NEGATIVE); URINE SPECIFIC GRAVITY 1.049
[2019-05-24 13:56] LABS: URINE AMPHETAMINES SCREEN NEGATIVE; URINE BARBITURATES SCREEN NEGATIVE; URINE BENZODIAZEPINES SCREEN NEGATIVE; URINE COCAINE SCREEN UNCONFIRMED POSITIVE; URINE MARIJUANA (THC) SCREEN UNCONFIRMED POSITIVE; URINE METHADONE SCREEN NEGATIVE; URINE PHENCYCLIDINE SCREEN NEGATIVE
--- NOTE | 2019-05-24 14:06 | RADIOLOGY REPORT (SQ) ---
EXAM DESCRIPTION: CTA CHEST COMPLETED DATE/TIME: 05/24/2019 1:10 pm REASON FOR STUDY: chest and abd pain COMPARISON: 07/08/2018. TECHNIQUE: CT scan of the chest performed using helical scanning technique with dynamic intravenous contrast injection. Images reviewed with lung, soft tissue and bone windows. Reconstructed coronal and sagittal MPR images reviewed. Additional 3 dimensional post-processing performed to develop Maximal Intensity Projection images (ME P). All images stored on PACS. All CT scanners at this facility use dose modulation, iterative reconstruction, and/or weight based d osing when appropriate to reduce radiation dose to as low as reasonably achievable (ALARA). [facility]: Dose Right [facility]: CareDose [facility]: Dose Right [facility]: Teradose 4D [facility]: [employer] CONTRAST TYPE AND DOSE: contrast/concentration: Isovue 350.00 mg/ml; Total Contrast Delivered: 75.0 ml; Total Saline Delivered: 73.0 ml Contrast bolus optimized for the pulmonary arteries. Not diagnostic for the aorta. RENAL FUNCTION: None required. The patient is less than 50 years old. RADIATION DOSE: . LIMITATIONS: None. FINDINGS: LUNGS AND PLEURA: There are bilateral central perihilar predominant ground-glass opacities with mild peribronchial cuffing. Mild basilar interlobular septal thickening. No dense consolidati on. No discrete nodules or masses. No large effusion. No pneumothorax. AORTA AND GREAT VESSELS: No aneurysm. Contrast bolus not optimized for the aorta. HEART: Cardiomegaly. No pericardial effusion. Right to left ventricular ratio is normal. Left-side d cardiac pacer with leads in the right atrium and right ventricle. No significant coronary artery ca lcifications. PULMONARY ARTERIES: No emboli visualized in the main or lobar pulmonary arteries. Evaluation of segm ental branches limited secondary to motion artifact. HILAR AND MEDIASTINAL STRUCTURES: No identified masses or abnormal nodes. HARDWARE: Left-sided cardiac pacer with leads in the right atrium and right ventricle. UPPER ABDOMEN: See separate report of the CT of the abdomen. THYROID AND OTHER SOFT TISSUES: No masses. No adenopathy. BONES: No acute or significant finding. 3D MIPS: Confirm above findings. OTHER: No other significant finding. IMPRESSION: 1. No evidence of pulmonary embolus. 2. Markedly enlarged heart. Bilateral perihilar ground-glass opacities, likely edema although atypi willam infection is not entirely excluded. No significant effusion. COMMENT: Quality ID # [id number]: Final reports with documentation of one or more dose reduction techniques (e.g., Automated exposure control, adjustment of the mA and/or kV according to patient size, use of iterative reconstruction technique) TECHNICAL DOCUMENTATION: JOB ID: [id number] [employer] All Rights Reserved Reading location - IP/workstation name: [email or web address]
--- NOTE | 2019-05-24 14:07 | RADIOLOGY REPORT (SQ) ---
EXAM DESCRIPTION: CT ABD/PELVIS WITH IV ONLY COMPLETED DATE/TIME: 05/24/2019 1:10 pm REASON FOR STUDY: chest and abd pain COMPARISON: None. TECHNIQUE: CT scan of the abdomen and pelvis performed using helical scanning technique with dynamic intravenous contrast injection. No oral contrast. Images reviewed with lung, soft tissue, and bone windows. Reconstructed coronal and sagittal MPR images reviewed. Delayed images for evaluation of the urinary system also acquired. All images stored on PACS. All CT scanners at this facility use dose modulation, iterative reconstruction, and/or weight based d osing when appropriate to reduce radiation dose to as low as reasonably achievable (ALARA). [facility]: Dose Right [facility]: CareDose [facility]: Dose Right [facility]: Teradose 4D [facility]: [employer] CONTRAST TYPE AND DOSE: 75 cc Omnipaque 350 RENAL FUNCTION: Creatinine 1.25 RADIATION DOSE: CT Rad equipment meets quality standard of care and radiation dose reduction techniq ues were employed. CTDIvol: 14.9 - 23.2 mGy. DLP: 2242 mGy-cm.. LIMITATIONS: Motion artifact. FINDINGS: LOWER CHEST: See separate report of the CT of the chest. LIVER: Normal size. No masses. No dilated ducts. Contrast reflux within the hepatic veins. SPLEEN: Normal size. No focal lesions. PANCREAS: No masses. No significant calcifications. No adjacent inflammation or peripancreatic fluid collections. Pancreatic duct not dilated. GALLBLADDER: No identified stones by CT criteria. No inflammatory changes to suggest cholecystitis. ADRENAL GLANDS: No significant masses or asymmetry. RIGHT KIDNEY AND URETER: No solid masses. No significant calcifications. No hydronephrosis or hyd roureter. LEFT KIDNEY AND URETER: No solid masses. No significant calcifications. No hydronephrosis or hydr oureter. AORTA AND VESSELS: No aneurysm. No dissection. Renal arteries, SMA, celiac without stenosis. RETROPERITONEUM: No retroperitoneal adenopathy, hemorrhage or masses. BOWEL AND PERITONEAL CAVITY: No masses or inflammatory changes. No free fluid or peritoneal masses. APPENDIX: Normal. PELVIS: No mass. No free fluid. Normal bladder. ABDOMINAL WALL: No masses. No hernias. BONES: No significant or acute findings. OTHER: No other significant finding. IMPRESSION: Reflux of contrast within the hepatic veins suggestive of right heart dysfunction. No o ther evidence of acute intra-abdominal/pelvic process. Please see same-day chest CT for findings above the diaphragm. TECHNICAL DOCUMENTATION: JOB ID: [id number] Quality ID # [id number]: Final reports with documentation of one or more dose reduction techniques (e.g., Au tomated exposure control, adjustment of the mA and/or kV according to patient size, use of iterative reconstruction technique) 2010 [employer]- All Rights Reserved Reading location - IP/workstation name: [email or web address]
[2019-05-24] MEDS ORDERED: FUROSEMIDE INJ/PF 40 MG/4 ML SDV IV ONE (14:45)
[2019-05-24] MEDS ORDERED: NITROGLYCERIN 2% OINTMENT 1 GM PACKET TP ONE (14:45)
[2019-05-24] MEDS ORDERED: HALOPERIDOL LACTATE INJ 5 MG/1 ML VIAL IV PRN (15:35)
--- NOTE | 2019-05-24 16:10 | PDOC H&P ---
History of Present Illness Admission Date/PCP: THAO MARTINEZ Patient complains of: left flank pain History of Present Illness: LOLY SHEIKH is a 48 year old male with a past medical history of possible hypertensive cardiomyopathy, systolic heart failure with last known EF of 30%, prior AICD placement, hypertension, hyperlipidemia, history of substance abuse and chronic low back pain who presented with left flank pain. Patient reports that he started having a sharp pain on the left mid upper back area. He says that it occasionally radiated towards the chest. He reports occasional worsening of pain and breathing. He says he was only having minimally productive cough. He says he was having mild shortness of breath. Denies fever or chills. In the ER, he was noted to have bilateral rales. He had a chest CTA which ruled out a PE but did show possible pulmonary edema with cardiomegaly. BNP was 24, 800. CT of the abdomen and pelvis was unremarkable aside from a possible right-sided heart dysfunction. His lowest saturation in the ER room air was 89%. He was initially placed on BiPAP then nasal cannula but he has been noncompliant and refused to wear it. Upon encounter, he says that the BiPAP is making his shortness of breath worse. He appears anxious. His UDS did come back positive for marijuana, cocaine and opiates. He says that he does use marijuana but says his last cocaine use was more than a week ago. He is on Endocet for his chronic back pain. Past Medical History Cardiac Medical History: Reports: Myocardial Infarction - left ventracal enlargement, Hyperlipidema, Hypertension Musculoskeltal Medical History: Reports: Arthritis Past Surgical History Past Surgical History: Reports: Orthopedic Surgery - right shoulder / right ankle Social History Smoking Status: Current Every Day Smoker Frequency of Alcohol Use: Heavy Drugs: Marijuana Hx Prescription Drug Abuse: No Family History Family History: Reviewed & Not Pertinent Parental Family History Reviewed: Yes - No premature CAD Children Family History Reviewed: No Sibling(s) Family History Reviewed.: No Medication/Allergy Allergies/Adverse Reactions: acetaminophen [From Vicodin] Allergy (Verified 05/24/19 09:15) aspirin [Aspirin] Allergy (Verified 05/24/19 09:15) hydrocodone bitartrate [From Vicodin] Allergy (Verified 05/24/19 09:15) ibuprofen [From Motrin] Allergy (Verified 05/24/19 09:15) Penicillins Allergy (Verified 05/24/19 09:15) Review of Systems All systems: reviewed and no additional remarkable complaints except as stated - As mentioned in HPI Physical Exam Vital Signs: Temp Pulse Resp BP Pulse Ox 97.6 F 28 H 110/93 H 100 05/24/19 10:11 05/24/19 14:46 05/24/19 11:30 05/24/19 14:46 General appearance: PRESENT: well-developed, well-nourished Head exam: PRESENT: atraumatic, normocephalic Eye exam: PRESENT: conjunctiva pink, EOMI, PERRLA. ABSENT: scleral icterus Ear exam: PRESENT: normal external ear exam Mouth exam: PRESENT: moist, tongue midline Neck exam: ABSENT: carotid bruit, JVD, lymphadenopathy, thyromegaly Respiratory exam: PRESENT: rales, rhonchi. ABSENT: wheezes Cardiovascular exam: PRESENT: RRR. ABSENT: diastolic murmur, rubs, systolic murmur Pulses: PRESENT: normal dorsalis pedis pul GI/Abdominal exam: PRESENT: normal bowel sounds, soft. ABSENT: distended, guarding, mass, organolmegaly, rebound, tenderness Rectal exam: PRESENT: deferred Neurological exam: PRESENT: alert, awake, oriented to person, oriented to place, oriented to time, oriented to situation, CN II-XII grossly intact. ABSENT: motor sensory deficit Psychiatric exam: PRESENT: anxious Results Laboratory Results: 05/24/19 09:39 05/24/19 09:39 05/24/19 05/24/19 05/24/19 09:39 09:39 13:28 WBC 12.9 H RBC 5.65 H Hgb 15.6 Hct 48.0 MCV 85 MCH 27.7 MCHC 32.6 RDW 15.4 H Plt Count 300 Seg Neutrophils % 82.3 H Lymphocytes % 13.4 Monocytes % 3.5 Eosinophils % 0.2 Basophils % 0.6 Absolute Neutrophils 10.6 H Absolute Lymphocytes 1.7 Absolute Monocytes 0.5 Absolute Eosinophils 0.0 Absolute Basophils 0.1 Sodium 140.6 Potassium 4.5 Chloride 104 Carbon Dioxide 23 Anion Gap 14 BUN 21 H Creatinine 1.25 Est GFR ( Amer) > 60 Est GFR (Non-Af Amer) > 60 Glucose 139 H Calcium 9.8 Total Bilirubin 1.8 H AST 36 Alkaline Phosphatase 126 Total Protein 7.1 Albumin 4.3 Lipase 45.7 Urine Color LISA Urine Appearance CLEAR Urine pH 5.0 Ur Specific [place] 1.049 Urine Protein 100 H Urine Glucose (UA) NEGATIVE Urine Ketones NEGATIVE Urine Blood NEGATIVE Urine Nitrite NEGATIVE Ur Leukocyte Esterase NEGATIVE Urine WBC (Auto) 0 Urine RBC (Auto) 1 05/24/19 05/24/19 05/24/19 09:39 09:39 13:46 Creatine Kinase 109 Troponin I 0.038 0.037 NT-Pro-B Natriuret Pep 26414 H Impressions: Abdomen/Pelvis CT 05/24/19 09:34 IMPRESSION: Reflux of contrast within the hepatic veins suggestive of right heart dysfunction. No other evidence of acute intra-abdominal/pelvic process. Please see same-day chest CT for findings above the diaphragm. Chest/Abdomen CTA 05/24/19 09:34 IMPRESSION: 1. No evidence of pulmonary embolus. 2. Markedly enlarged heart. Bilateral perihilar ground-glass opacities, likely edema although atypical infection is not entirely excluded. No significant effusion. Assessment and Plan - Diagnosis (1) Acute respiratory failure with hypoxia Is this a current diagnosis for this admission?: Yes Plan: Secondary to CHF exacerbation. Patient noncompliant with BiPAP or nasal cannula. Strongly encouraged to use the nasal cannula at least and he is amenable to trying it again. (2) CHF exacerbation Qualifiers: Heart failure type: systolic Qualified Code(s): I50.23 - Acute on chronic systolic (congestive) heart failure Is this a current diagnosis for this admission?: Yes Plan: Patient's last known LVEF was 30%. Chest CT shows possible pulmonary edema. CT pelvis did show hepatic reflux suggestive of right heart dysfunction. He could have possibly developed cor pulmonale as well. He already had moderate pulmonary HTN in his echo in June. Will proceed with cautious diuresis as he could possibly have biventricular failure. Will consult cardiology for further recommendations. (3) Polysubstance abuse Is this a current diagnosis for this admission?: Yes Plan: Counseled about substance abuse cessation. (4) Hypertension Qualifiers: Hypertension type: unspecified secondary hypertension Qualified Code(s): I15.9 - Secondary hypertension, unspecified; I15 - Secondary hypertension Is this a current diagnosis for this admission?: Yes Plan: Resume home meds once verified by pharmacy. - Time Time Spent with patient: 25-34 minutes
--- NOTE | 2019-05-24 16:12 | ADVANCED CARE ---
- Diagnosis (1) Acute respiratory failure with hypoxia Diagnosis Current: Yes (2) CHF exacerbation Diagnosis Current: Yes (3) Hypertension Diagnosis Current: Yes (4) Polysubstance abuse Diagnosis Current: Yes Resuscitation Status: Full Code Discussion: Discussed in length with patient. We discussed his noncompliance to BiPAP which could potentially compromise his respiratory status. He says that he feels worse on the BiPAP. He says he prefers chest compressions, defibrillation and mechanical ventilation if the need arises. He says his sister, Roshni Perera is his surrogate medical decision maker.
[2019-05-24] MEDS: HYDRALAZINE HCL INJ/PF 20 MG/1 ML SDV IV PRN (19:39)
[2019-05-24] MEDS: CEFTRIAXONE SODIUM 1,000 MG in DEXTROSE 5%-WATER 50 ML IV SCH (20:41)
[2019-05-24] MEDS: FUROSEMIDE INJ/PF 20 MG/2 ML SDV IV SCH (21:41)
[2019-05-24] MEDS: HEPARIN SOD (PORCINE) 5,000 UNIT/ML 1 ML VIAL SUBCUT SCH (21:44)
[2019-05-25 05:01] LABS: ABSOLUTE LYMPHOCYTES (AUTO) 1.6 10^3/uL (0.5-4.7); ABSOLUTE MONOCYTES (AUTO) 0.6 10^3/uL (0.1-1.4); ABSOLUTE NEUT (AUTO) 12.1 10^3/uL (1.7-8.2); BASOPHILS % (AUTO) 0.3 % (0-2); HEMATOCRIT 47.9 % (37.9-51.0); HEMOGLOBIN 15.7 g/dL (13.5-17.0); LYMPHOCYTES % (AUTO) 10.9 % (13-45); MEAN CORPUSCULAR HEMOGLOBIN 27.6 pg (27.0-33.4); MEAN CORPUSCULAR HGB CONC 32.9 g/dL (32.0-36.0); MEAN CORPUSCULAR VOLUME 84 fl (80-97); MONOCYTES % (AUTO) 4.1 % (3-13); PLATELET COUNT 260 10^3/uL (150-450); RED BLOOD COUNT 5.71 10^6/uL (4.35-5.55); RED CELL DISTRIBUTION WIDTH 15.8 % (11.5-14.0); SEGMENTED NEUTROPHILS % (AUTO) 84.7 % (42-78); TOTAL CELLS COUNTED % (AUTO) 100 %; WHITE BLOOD COUNT 14.3 10^3/uL (4.0-10.5)
[2019-05-25 05:23] LABS: ANION GAP 15 (5-19); BLOOD UREA NITROGEN 28 mg/dL (7-20); CALCIUM 9.4 mg/dL (8.4-10.2); CARBON DIOXIDE 24 mmol/L (22-30); CHLORIDE 98 mmol/L (98-107); GLUCOSE 153 mg/dL (75-110); POTASSIUM 3.8 mmol/L (3.6-5.0)
[2019-05-25] MEDS ORDERED: ALBUTEROL SULFATE HFA (90 MCG/PUFF) 200 PUFF/8.5 GM MDI IH PRN (08:19)
[2019-05-25] MEDS: HYDRALAZINE HCL INJ/PF 20 MG/1 ML SDV IV PRN (08:29)
[2019-05-25] MEDS: HEPARIN SOD (PORCINE) 5,000 UNIT/ML 1 ML VIAL SUBCUT SCH ×2 (09:36→22:22)
[2019-05-25] MEDS: FUROSEMIDE INJ/PF 20 MG/2 ML SDV IV SCH ×2 (09:36→22:21)
[2019-05-25] MEDS: AMIODARONE HCL 200 MG TABLET PO SCH (09:37)
[2019-05-25] MEDS: AMLODIPINE BESYLATE 10 MG TABLET PO SCH (09:37)
[2019-05-25] MEDS: LISINOPRIL 10 MG TABLET PO SCH (09:38)
[2019-05-25] MEDS: SPIRONOLACTONE 25 MG TABLET PO SCH (09:38)
[2019-05-25] MEDS ORDERED: CEFTRIAXONE 1 GM/D5W RTU 1 GM/50 ML RTUPB IV SCH (10:00)
[2019-05-25] MEDS: FLUTICASONE NASAL SPRAY 50 MCG/SPRY 120 SPRAY/16 GM NASL SCH (10:00)
--- NOTE | 2019-05-25 11:21 | RADIOLOGY REPORT (SQ) ---
EXAM DESCRIPTION: CHEST 2 VIEWS COMPLETED DATE/TIME: 05/25/2019 11:00 am REASON FOR STUDY: CHF COMPARISON: 06/30/2016 EXAM PARAMETERS: NUMBER OF VIEWS: two views TECHNIQUE: Digital Frontal and Lateral radiographic views of the chest acquired. RADIATION DOSE: NA LIMITATIONS: none FINDINGS: LUNGS AND PLEURA: No opacities, masses or pneumothorax. No pleural effusion. MEDIASTINUM AND HILAR STRUCTURES: No masses or contour abnormalities. HEART AND VASCULAR STRUCTURES: Enlarged cardiac silhouette, stable. No evidence for failure. BONES: No acute findings. HARDWARE: Left-sided cardiac pacer/ defibrillator with leads overlying right atrium and right ventric le. OTHER: No other significant finding. IMPRESSION: Stable enlarged cardiac silhouette without overt edema. TECHNICAL DOCUMENTATION: JOB ID: [id number] [email or web address]- All Rights Reserved Reading location - IP/workstation name: [email or web address]
[2019-05-25] MEDS: AZITHROMYCIN 500 MG in DEXTROSE 5%-WATER 250 ML IV SCH (13:55)
--- NOTE | 2019-05-25 14:33 | Progress Note Acknowledgement ---
Progress Note Acknowledgement Progess Note Acknowledgement: I, the undersigned member of the medical staff with appropriate privileges and with supervisory authority over Beth Torrez, a [facility] practice allied health professional, acknowledge that I have reviewed the progress notes entered on this patient, and in my professional judgment believe that the assessment made and/or any care evidenced was appropriate
--- NOTE | 2019-05-25 14:48 | PDOC PROGRESS REPORT ---
Subjective Progress Note for:: 05/25/19 Subjective:: The patient is a 48-year-old male with a past medical history significant for hypertensive cardiomyopathy, systolic heart failure (last LVEF 30%) AICD, hypertension, hyperlipidemia, arthritis, and substance abuse with continuous use who was admitted 05/24/2019 for chest pain, and acute respiratory failure with hypoxia secondary to CHF exacerbation. Patient was seen on afternoon rounds. He was found resting in bed comfortably on room air. He was sleeping when I first entered but woke easily when I said his name. He was withdrawn with a flat affect and minimal responses to his questions but did deny current chest pain. He confirms continued shortness of breath and a productive cough. He further denies fever, chills, palpitations, abdominal pain, nausea vomiting and diarrhea. He has no questions or concerns at this time. Nursing reports patient has been noncompliant with BiPAP and supplemental oxygen recommendations. They have no other specific questions or concerns at this time. Reason For Visit: CHEST PAIN, ATYPICAL PNEUMONIA, CHF Physical Exam Vital Signs: Temp Pulse Resp BP Pulse Ox 97.4 F 49 L 24 H 151/75 H 98 05/25/19 08:12 05/25/19 09:29 05/25/19 08:12 05/25/19 09:29 05/25/19 09:29 Intake & Output 05/24/19 05/25/19 05/26/19 06:59 06:59 06:59 Intake Total 650 Output Total 1250 Balance -600 Weight 77.8 kg General appearance: PRESENT: no acute distress, disheveled, well-developed, well-nourished - overweight Head exam: PRESENT: atraumatic, normocephalic Eye exam: PRESENT: conjunctiva pink, EOMI, PERRLA. ABSENT: scleral icterus Mouth exam: PRESENT: moist, tongue midline Neck exam: ABSENT: carotid bruit, JVD, lymphadenopathy, thyromegaly Respiratory exam: PRESENT: rhonchi - throughout, symmetrical, tachypnea. ABSENT: rales, wheezes Cardiovascular exam: PRESENT: RRR, +S1, +S2, other - frequent PVCs and occasional runs of v-tach (<8 beats). ABSENT: diastolic murmur, rubs, systolic murmur Pulses: PRESENT: normal dorsalis pedis pul Vascular exam: PRESENT: normal capillary refill GI/Abdominal exam: PRESENT: normal bowel sounds, soft. ABSENT: distended, guarding, mass, organolmegaly, rebound, tenderness Rectal exam: PRESENT: deferred Extremities exam: PRESENT: full ROM. ABSENT: calf tenderness, clubbing, pedal edema Neurological exam: PRESENT: alert, awake, oriented to person, oriented to place, oriented to time, oriented to situation, CN II-XII grossly intact. ABSENT: motor sensory deficit Psychiatric exam: PRESENT: flat affect, normal mood. ABSENT: homicidal ideation, suicidal ideation Skin exam: PRESENT: dry, intact, warm. ABSENT: cyanosis, rash Results Laboratory Results: 05/25/19 04:41 05/25/19 04:41 05/25/19 05/25/19 04:41 04:41 WBC 14.3 H RBC 5.71 H Hgb 15.7 Hct 47.9 MCV 84 MCH 27.6 MCHC 32.9 RDW 15.8 H Plt Count 260 Seg Neutrophils % 84.7 H Lymphocytes % 10.9 L Monocytes % 4.1 Eosinophils % 0.0 Basophils % 0.3 Absolute Neutrophils 12.1 H Absolute Lymphocytes 1.6 Absolute Monocytes 0.6 Absolute Eosinophils 0.0 Absolute Basophils 0.0 Sodium 137.0 Potassium 3.8 Chloride 98 Carbon Dioxide 24 Anion Gap 15 BUN 28 H Creatinine 1.18 Est GFR ( Amer) > 60 Est GFR (Non-Af Amer) > 60 Glucose 153 H Calcium 9.4 05/24/19 05/24/19 05/24/19 09:39 09:39 13:46 Creatine Kinase 109 Troponin I 0.038 0.037 NT-Pro-B Natriuret Pep [id number] H 05/25/19 12:56 Creatine Kinase Troponin I 0.158 NT-Pro-B Natriuret Pep Impressions: Abdomen/Pelvis CT 05/24/19 09:34 IMPRESSION: Reflux of contrast within the hepatic veins suggestive of right heart dysfunction. No other evidence of acute intra-abdominal/pelvic process. Please see same-day chest CT for findings above the diaphragm. Chest/Abdomen CTA 05/24/19 09:34 IMPRESSION: 1. No evidence of pulmonary embolus. 2. Markedly enlarged heart. Bilateral perihilar ground-glass opacities, likely edema although atypical infection is not entirely excluded. No significant effusion. Chest X-Ray 05/25/19 00:00 IMPRESSION: Stable enlarged cardiac silhouette without overt edema. Assessment and Plan - Diagnosis (1) Acute respiratory failure with hypoxia Is this a current diagnosis for this admission?: Yes Plan: Secondary to CHF exacerbation and atypical pneumonia. Continue supplemental oxygen and BiPAP as needed to meet saturations. Specific management of CHF exacerbation and pneumonia as outlined below. (2) Pneumonia Is this a current diagnosis for this admission?: Yes Plan: Patient with complaint of dyspnea, currently maintaining oxygen saturations on room air. Noted to have rhonchi throughout. CT chest demonstrates bilateral perihilar opacities; possible atypical pneumonia. Patient does have slightly elevated leukocytosis; 14.3. Blood cultures pending. Sputum culture uncollected. Continue IV azithromycin and Rocephin for treatment of community-acquired pneumonia. Continue scheduled and as needed nebulizer treatments. Mucinex twice daily. Supplemental oxygen and BiPAP as needed to maintain oxygen saturations. Incentive spirometer to bedside. (3) CHF exacerbation Qualifiers: Heart failure type: systolic Qualified Code(s): I50.23 - Acute on chronic s ystolic (congestive) heart failure Is this a current diagnosis for this admission?: Yes Plan: Echocardiogram (June 2018) demonstrates LVEF of 30% with severe global hypokinesis of the left ventricle and moderate pulmonary hypertension. proBNP elevated to 24,000. Continue home dose amiodarone, amlodipine, lisinopril, and spironolactone Continue gentle diuresis with IV furosemide 20 mg every 12 hours. Cardiology is consulted; appreciate Dr. Andino's evaluation recommendations. Cardiac diet. Daily weights and strict I&O's. (4) Elevated troponin Is this a current diagnosis for this admission?: Yes Plan: Likely demand mismatch ischemia secondary to pneumonia, illicit drug use, and systolic CHF. Patient states that he is currently chest pain-free. Continue daily atorvastatin. Continue antihypertensives. Cardiology is consulted; appreciate their evaluation recommendations. (5) Hypertension Qualifiers: Hypertension type: unspecified secondary hypertension Qualified Code(s): I15.9 - Secondary hypertension, unspecified; I15 - Secondary hypertension Is this a current diagnosis for this admission?: Yes Plan: Blood pressures remain slightly elevated. Continue antihypertensive regiment as outlined above. IV hydralazine as needed for blood pressure control. (6) Polysubstance abuse Is this a current diagnosis for this admission?: Yes Plan: UDS positive for opiates, cocaine, and THC. Counseled about substance abuse cessation. - Time Time Spent with patient: 25-34 minutes Medications reviewed and adjusted accordingly: Yes Anticipated discharge: Home - Inpatient Certification Based on my medical assessment, after consideration of the patient's comorbidities, presenting symptoms, or acuity I expect that the services needed warrant INPATIENT care.: Yes I certify that my determination is in accordance with my understanding of Medicare's requirements for reasonable and necessary INPATIENT services [42 CFR 412.3e].: Yes Medical Necessity: Need Close Monitoring Due to Risk of Patient Decompensation, Need For Continuous Telemetry Monitoring, Need for IV Antibiotics, Risk of Complication if Not Cared For in Hospital, Risk of Diagnosis Which Will Require Inpatient Eval/Care/Monitoring
--- NOTE | 2019-05-25 14:56 | EKG REPORT ---
SEVERITY:- ABNORMAL ECG - SINUS RHYTHM VENTRICULAR PREMATURE COMPLEX FIRST DEGREE AV BLOCK LEFT ATRIAL ABNORMALITY LVH WITH SECONDARY REPOLARIZATION ABNORMALITY ABNORMAL T, PROBABLE ISCHEMIA, LATERAL LEADS BORDERLINE PROLONGED QT INTERVAL : Confirmed by: She Martinez 25-May-2019 14:54:55
--- NOTE | 2019-05-25 14:56 | EKG REPORT ---
SEVERITY:- ABNORMAL ECG - SINUS TACHYCARDIA FIRST DEGREE AV BLOCK LEFT ATRIAL ABNORMALITY LVH WITH SECONDARY REPOLARIZATION ABNORMALITY : Confirmed by: She Martinez 25-May-2019 14:55:02
[2019-05-25] MEDS: IPRATROPIUM/ALBUTEROL 0.5-2.5 MG/3 ML AMPUL NEB SCH (16:21)
[2019-05-25] MEDS: CEFTRIAXONE SODIUM 1,000 MG in DEXTROSE 5%-WATER 50 ML IV SCH (17:17)
--- NOTE | 2019-05-25 19:35 | PDOC CONSULTATION ---
Consultation-Blank Consultation: CARDIOLOGY CONSULTATION by Dr. Kaia Flores on 05/25/2019. Patient seen at 8:30 AM on 05/25/2019. REASON FOR CONSULTATION: Patient with use of chronic congestive heart failure. CONSULT REQUESTING PHYSICIAN: Dr. King Davila, [facility]. HISTORY PRESENT ILLNESS: Patient is a 48-year-old Afro-[place]ian male who has a history of polysubstance abuse, history of chronic back pain, history of ischemic cardiomyopathy with LV ejection fraction of 30%, with an AICD. History of myocardial infarction in the past and history of coronary artery stents x3 admitted with symptoms of increasing shortness of breath and PND and orthopnea and with mild leg edema. The patient states initially he came to the emergency room due to severe back pain with radiation to the chest. He had no anginal symptoms. But on further investigation in the ER which included the chest x-ray which showed that the patient was in pulmonary edema. The patient also states that he had cough with production of mild yellowish sputum. He denies history of COPD, but the patient is a smoker. There is no fever or chills or Reiger's. The patient is on amiodarone for prior history of ventricular tachycardia. He also has an AICD. There is no recent firing of the AICD. He has no TIA or CVA symptoms. There is no syncope. With treatment his leg edema has resolved completely Past Medical History Cardiac Medical History: Reports: Myocardial Infarction -history of stents. History of cardiomyopathy with AICD placement., Hyperlipidema, Hypertension. PULMONARY history: No history of COPD or asthma. No history of sleep apnea. No history of pulmonary embolism. Musculoskeltal Medical History: Reports: Arthritis. History of chronic back pain. Denies chronic kidney disease. No history of diabetes mellitus or thyroid disease. Past Surgical History Past Surgical History: Reports: Orthopedic Surgery - right shoulder / right ankle, cardiac catheterization. Stent placement, and AICD placement. Social History Smoking Status: Current Every Day Smoker Frequency of Alcohol Use: Heavy Drugs: Marijuana Hx Prescription Drug Abuse: No Family History Family History: Father has a history of coronary artery disease and prior myocardial infarction. Medication/Allergy acetaminophen [From Vicodin],aspirin,hydrocodone bitartrate [From Vicodin],ibuprofen [From Motrin] , Penicillins. RESUSCITATION STATUS: The patient is a full code. His is a surrogate healthcare decision maker. REVIEW SYSTEMS: CONSTITUTIONAL: Denies any fever chills or rigors. HEAD: Denies headaches or head injury. EYES: No history of amblyopia diplopia. No history of amaurosis fugax. EARS: No history of vertigo. No history of tinnitus. NOSE: No history of hayfever. No history of nosebleeds. MOUTH: No history of altered taste sensation. No ulcers in the mouth. THROAT: No history of odynophagia or dysphagia. SKIN: No history of eczema. No history of pruritus. No history of yellowish discoloration of the skin. NECK: No history of swelling in the neck. No history of goiter. LUNGS: No history of COPD or asthma, but the patient is a smoker. History of cough with scanty greenish sputum production.. No pleuritic chest pain. No hemoptysis. HEART: History of hypertension present history of hyperlipidemia present. History of coronary artery disease. History of prior FL. History of stent placement. History of cardia myopathy with the ventricular tachycardia. History of AICD placement. Recent symptoms of decompensated heart failure. ENDOCRINE: No history of diabetes mellitus no history of thyroid disease. No history of polydipsia polyuria no history of heat or cold intolerance. MUSCULOSKELETAL history of chronic back pain. No history of collagen vascular disease. RENAL: No history of chronic kidney disease. No symptoms or UTI no hematuria pyuria dysuria. PARKING ENFORCEMENT MANAGER: No history of TIA CVA. No history of headaches migraines or seizures. PSYCHIATRIC: No history of anxiety or depression. HEMATOLOGICAL: No history of bleeding diathesis. No history of clotting disorders. VASCULAR: No history of DVT. No history of calf or buttock claudication. PHYSICAL EXAMINATION: The patient is well-built and well-nourished. In some distress due to acute on chronic back pain. Selected Entries 05/25/19 05/25/19 08:12 09:29 Temperature 97.4 F Temperature Axillary Source Pulse Rate 108 H Respiratory 24 H Rate Blood Pressure 151/75 H Blood Pressure 100 Mean O2 Sat by Pulse 95 98 Oximetry Oxygen Flow 4.00 Rate Oxygen Delivery Nasal Cannula Method HEAD: Is atraumatic normocephalic. EYES: Pupils are equal round regular reactive light accommodation. Extraocular movements are normal. There is no conjunctival pallor. There is no scleral icterus. EARS: Tympanic memories are intact. External auditory canals are clear. NOSE: There is no deviated nasal septum. There is no inflammation nasal mucous membrane. MOUTH: Mucous memories of mouth are moist tongue is moist there is no ulcers there is no bleeding from the gums. THROAT: There is no redness of the oropharynx. There is no exudates. SKIN: There is no skin rashes or skin lesions. There is no particular ecchymosis. NECK: Carotids equal there is no bruit. Neck is supple. There is no lymphadenopathy. There is no goiter. There is no accessory muscle respiration use. There is no JVD. Trachea central. LUNGS: At present is clear to auscultation percussion. There is no rhonchi rales or wheezing. HEART: S1- S2 is heard. There is no S3 gallop. There is no S4 gallop. There is systolic murmur left sternal border and the apex there is no rub. ABDOMEN: Is soft. There is no paraspinal megaly bowel sounds are well heard. Is no tender areas masses. EXTREMITIES: Femorals are diminished. There is no femoral bruits. Leg pulses are well felt. There is no pedal edema. There is no DVT or cellulitis. There is no cyanosis or clubbing. PARKING ENFORCEMENT MANAGER: The patient is conscious awake alert oriented x3 with no focal deficit. PSYCHIATRIC: The patient judgment insight are intact. The patient does not appear to be anxious or depressed. Current Medications Generic Name Dose Route Start Last Admin Trade Name Freq PRN Reason Stop Dose Admin Albuterol 2 puff 05/25/19 08:19 Proair Hfa Inhalation Aerosol 8.5 Gm Mdi 06/24/19 08:18 Q6HP PRN FOR SHORTNESS OF BREATH Albuterol/Ipratropium 3 ml 05/25/19 16:00 05/25/19 16:21 Duoneb 3 Ml Ampul NEB 06/24/19 15:59 3 ml RTQ8 EMELINA Administration Amiodarone HCl 200 mg 05/25/19 10:00 05/25/19 09:37 Cordarone 200 Mg Tablet PO 06/24/19 09:59 200 mg DAILY EMELINA Administration Amlodipine Besylate 10 mg 05/25/19 10:00 05/25/19 09:37 Norvasc 10 Mg Tablet PO 06/24/19 09:59 10 mg DAILY EMELINA Administration Atorvastatin Calcium 40 mg 05/25/19 22:00 Lipitor 40 Mg Tablet PO 06/24/19 21:59 QHS EMELINA Carvedilol 25 mg 05/25/19 22:00 Coreg 12.5 Mg Tablet PO 06/24/19 21:59 Q12 EMELINA Fluticasone Propionate 1 spray 05/25/19 10:00 05/25/19 10:00 Flonase Nasal [place] 50 Mcg/[place] 16 Gm NASL 06/24/19 09:59 1 spr DAILY EMELINA Administration Furosemide 20 mg 05/24/19 22:00 05/25/19 09:36 Lasix Inj/Pf 20 Mg/2 Ml Sdv IV 06/23/19 21:59 20 mg Q12 EMELINA Administration Guaifenesin 600 mg 05/25/19 22:00 Mucinex Sr 600 Mg Tablet.Sa PO 06/24/19 21:59 Q12 EMELINA Heparin Sodium (Porcine) 5,000 unit 05/24/19 22:00 05/25/19 09:36 Heparin Inj 5,000 Units/Ml 1 Ml Vial SUBCUT 06/23/19 21:59 5,000 unit Q12 EMELINA Administration Hydralazine HCl 10 mg 05/24/19 15:34 05/25/19 08:29 Apresoline Inj/Pf 20 Mg/1 Ml Sdv IV 06/23/19 15:33 10 mg Q4HP PRN Administration for SBP>170 or DBP>100 Ceftriaxone Sodium 1,000 mg/ 50 mls @ 100 mls/hr 05/24/19 20:00 05/25/19 18:17 Dextrose IV 05/31/19 19:59 Infused QPM EMELINA Infusion Azithromycin 500 mg/ Dextrose 250 mls @ 250 mls/hr 05/25/19 13:00 05/25/19 16:29 IV 06/01/19 12:59 Infused DAILY EMELINA Infusion Lisinopril 40 mg 05/25/19 10:00 05/25/19 09:38 Prinivil 10 Mg Tablet PO 06/24/19 09:59 40 mg DAILY EMELINA Administration Spironolactone 25 mg 05/25/19 10:00 05/25/19 09:38 Aldactone 25 Mg Tablet PO 06/24/19 09:59 25 mg DAILY EMELINA Administration Discontinued Medications Generic Name Dose Route Start Last Admin Trade Name Freq PRN Reason Stop Dose Admin Furosemide 40 mg 05/24/19 14:45 05/24/19 15:51 Lasix Inj/Pf 40 Mg/4 Ml Sdv IV 05/24/19 14:46 40 mg NOW ONE Administration Haloperidol Lactate 5 mg 05/24/19 11:43 05/24/19 11:53 Haldol 5 Mg/Ml Inj 1 Ml Vial IV 05/24/19 11:44 5 mg NOW ONE Administration Haloperidol Lactate 3 mg 05/24/19 15:35 Haldol 5 Mg/Ml Inj 1 Ml Vial IV 06/23/19 15:34 Q6HP PRN ANXIETY/AGITATION Labetalol HCl 20 mg 05/24/19 10:32 05/24/19 10:55 Normodyne Inj 20 Mg/4 Ml Syringe IV 05/24/19 10:33 20 mg NOW ONE Administration Lisinopril 20 mg 05/24/19 13:30 05/24/19 14:12 Prinivil 10 Mg Tablet PO 05/24/19 13:31 Not Given NOW ONE Morphine Sulfate 4 mg 05/24/19 09:35 05/24/19 09:46 Morphine 10 Mg/Ml Inj IV 05/24/19 09:36 4 mg NOW ONE Administration Nitroglycerin 1 gm 05/24/19 14:45 05/24/19 15:47 Nitrol 2% Ointment 1gm Packet TP 05/24/19 14:46 1 gm NOW ONE Administration Ondansetron HCl 4 mg 05/24/19 09:35 05/24/19 09:45 Zofran Inj/Pf 4 Mg/2 Ml Sdv IV 05/24/19 09:36 4 mg NOW ONE Administration Labs- All tests 24 hr 05/25/19 05/25/19 05/25/19 04:41 04:41 12:56 WBC 14.3 H RBC 5.71 H Hgb 15.7 Hct 47.9 MCV 84 MCH 27.6 MCHC 32.9 RDW 15.8 H Plt Count 260 Seg Neutrophils % 84.7 H Lymphocytes % 10.9 L Monocytes % 4.1 Eosinophils % 0.0 Basophils % 0.3 Absolute Neutrophils 12.1 H Absolute Lymphocytes 1.6 Absolute Monocytes 0.6 Absolute Eosinophils 0.0 Absolute Basophils 0.0 Sodium 137.0 Potassium 3.8 Chloride 98 Carbon Dioxide 24 Anion Gap 15 BUN 28 H Creatinine 1.18 Est GFR ( Amer) > 60 Est GFR (Non-Af Amer) > 60 Glucose 153 H Calcium 9.4 Troponin I 0.158 Abdomen/Pelvis CT 05/24/19 09:34 IMPRESSION: Reflux of contrast within the hepatic veins suggestive of right heart dysfunction. No other evidence of acute intra-abdominal/pelvic process. Please see same-day chest CT for findings above the diaphragm. Chest/Abdomen CTA 05/24/19 09:34 IMPRESSION: 1. No evidence of pulmonary embolus. 2. Markedly enlarged heart. Bilateral perihilar ground-glass opacities, likely edema although atypical infection is not entirely excluded. No significant effusion. Chest X-Ray 05/25/19 00:00 IMPRESSION: Stable enlarged cardiac silhouette without overt edema. IMPRESSION/RECOMMENDATION: 1. Acute on chronic systolic heart failure. Patient with the LV ejection fraction of 30%. Recommend continue the patient on his current beta-blockers, continue his CHANELLE inhibitor. At present the patient is a euvolemic we will recommend converting the patient's IV Lasix to p.o. Lasix. 2. Elevated troponin I secondary to congestive heart failure. No evidence of non-ST elevation FL. 3. Possible acute bronchitis in a patient with history of tobacco abuse. Continue antibiotics. Would recommend converting the antibiotics to p.o., since the chest x-ray shows no acute changes. 4. Coronary artery disease: At present no anginal symptoms. We will get the patient's cardiac cath report from [facility]. Would recommend adding the patient on Imdur. 5. Cardiomyopathy: Note that the patient protected with the AICD. There is no recent firing of his AICD. 6. History of ventricle tachycardia: Continue amiodarone. Would recommend getting liver function tests, thyroid function tests. Later would recommend patient have a full PFT with DLCO. 7. Hypertension: Not very well controlled. Would recommend adding amlodipine if the blood pressure remains involved in view of the cardia myopathy would recommend that the patient systolic be brought down to 110 systolic range. 8. Hyperlipidemia: Continue statin. 9. History of chronic back pain: The patient would benefit from pain management consult. 10. History of tobacco and alcohol abuse: The patient has been given tobacco cessation counseling. His effects of alcohol has been discussed with the patient. Occasions reviewed. Medication adjusted. Medical decision making is of moderat e to high complexity. 60 minutes spent on this patient more than 50% of time spent in direct patient care.Will follow.
[2019-05-25] MEDS ORDERED: (PENDING PHARMACY ID) (Rosuvastatin Calcium [Crestor 20 Mg Tablet] 20 MG) PO SCH (22:00)
[2019-05-25] MEDS ORDERED: ATORVASTATIN CALCIUM 40 MG TABLET PO SCH (22:00)
[2019-05-25] MEDS: GUAIFENESIN 600 MG TABLET.SA PO SCH (22:20)
[2019-05-25] MEDS: CARVEDILOL 12.5 MG TABLET PO SCH (22:21)
[2019-05-26] MEDS: IPRATROPIUM/ALBUTEROL 0.5-2.5 MG/3 ML AMPUL NEB SCH ×2 (00:10→08:17)
[2019-05-26 05:17] LABS: HEMATOCRIT 52.7 % (37.9-51.0); HEMOGLOBIN 17.3 g/dL (13.5-17.0); MEAN CORPUSCULAR HEMOGLOBIN 27.4 pg (27.0-33.4); MEAN CORPUSCULAR HGB CONC 32.9 g/dL (32.0-36.0); MEAN CORPUSCULAR VOLUME 84 fl (80-97); PLATELET COUNT 239 10^3/uL (150-450); RED BLOOD COUNT 6.31 10^6/uL (4.35-5.55); RED CELL DISTRIBUTION WIDTH 15.6 % (11.5-14.0); WHITE BLOOD COUNT 20.5 10^3/uL (4.0-10.5)
[2019-05-26 05:32] LABS: ALBUMIN 4.1 g/dL (3.5-5.0); ALKALINE PHOSPHATASE 111 U/L (38-126); ANION GAP 12 (5-19); ASPARTATE AMINO TRANSFERASE 109 U/L (17-59); BILIRUBIN,DIRECT 0.5 mg/dL (0.0-0.4); BLOOD UREA NITROGEN 31 mg/dL (7-20); CALCIUM 9.5 mg/dL (8.4-10.2); CARBON DIOXIDE 27 mmol/L (22-30); CHLORIDE 95 mmol/L (98-107); GLUCOSE 119 mg/dL (75-110); POTASSIUM 3.8 mmol/L (3.6-5.0); TOTAL PROTEIN 6.8 g/dL (6.3-8.2)
[2019-05-26 05:57] LABS: FREE T4 (FREE THYROXINE) 1.29 ng/dL (0.78-2.19)
[2019-05-26 06:11] LABS: THYROID STIMULATING HORMONE 0.51 uIU/mL (0.47-4.68)
[2019-05-26] MEDS ORDERED: LISINOPRIL 40 MG PO SCH (08:00)
[2019-05-26 08:22] VITALS: BP 123/85
[2019-05-26] MEDS: AMLODIPINE BESYLATE 10 MG TABLET PO SCH (09:41)
[2019-05-26] MEDS: CARVEDILOL 12.5 MG TABLET PO SCH (09:41)
[2019-05-26] MEDS: GUAIFENESIN 600 MG TABLET.SA PO SCH (09:41)
[2019-05-26] MEDS: AMIODARONE HCL 200 MG TABLET PO SCH (09:41)
[2019-05-26] MEDS: SPIRONOLACTONE 25 MG TABLET PO SCH (09:42)
[2019-05-26] MEDS: FLUTICASONE NASAL SPRAY 50 MCG/SPRY 120 SPRAY/16 GM NASL SCH (09:42)
[2019-05-26] MEDS: HEPARIN SOD (PORCINE) 5,000 UNIT/ML 1 ML VIAL SUBCUT SCH (09:42)
[2019-05-26] MEDS: LISINOPRIL 10 MG TABLET PO SCH (09:42)
[2019-05-26] MEDS: AZITHROMYCIN 500 MG in DEXTROSE 5%-WATER 250 ML IV SCH (09:42)
[2019-05-26] MEDS ORDERED: FUROSEMIDE 40 MG TABLET PO SCH (10:00)
[2019-05-26] MEDS ORDERED: ISOSORBIDE MONONITRATE 30 MG TAB.ER.24H PO SCH (10:00)
--- NOTE | 2019-05-26 17:21 | Left Against Medical Advice ---
Against Medical Advice Admission Date/Time: 05/25/19 13:47 Primary Care Provider: THAO MARTINEZ Date of Patient Emigration: 05/26/19 - Diagnosis: (1) Acute respiratory failure with hypoxia Is this a current diagnosis for this admission?: Yes (2) Pneumonia Is this a current diagnosis for this admission?: Yes (3) CHF exacerbation Is this a current diagnosis for this admission?: Yes (4) Elevated troponin Is this a current diagnosis for this admission?: Yes (5) Hypertension Is this a current diagnosis for this admission?: Yes (6) Polysubstance abuse Is this a current diagnosis for this admission?: Yes - Summary: Summary: Please see Admission and Progress Notes as well. LOLY SHEIKH is a 48 M, who LEFT AGAINST MEDICAL ADVICE. The Patient was admitted on 05/25/19 13:47. Per H&P by Dr. Emery: LOLY SHEIKH is a 48 year old male with a past medical history of possible hypertensive cardiomyopathy, systolic heart failure with last known EF of 30%, prior AICD placement, hypertension, hyperlipidemia, history of substance abuse and chronic low back pain who presented with left flank pain. Patient reports that he started having a sharp pain on the left mid upper back area. He says that it occasionally radiated towards the chest. He reports occasional worsening of pain and breathing. He says he was only having minimally productive cough. He says he was having mild shortness of breath. Denies fever or chills. In the ER, he was noted to have bilateral rales. He had a chest CTA which ruled out a PE but did show possible pulmonary edema with cardiomegaly. BNP was 24, 800. CT of the abdomen and pelvis was unremarkable aside from a possible right-sided heart dysfunction. His lowest saturation in the ER room air was 89%. He was initially placed on BiPAP then nasal cannula but he has been noncompliant and refused to wear it. Upon encounter, he says that the BiPAP is making his shortness of breath worse. He appears anxious. His UDS did come back positive for marijuana, cocaine and opiates. He says that he does use marijuana but says his last cocaine use was more than a week ago. He is on Endocet for his chronic back pain. Course: Patient was empirically treated with IV azithromycin and Rocephin for community-acquired pneumonia. Blood cultures are negative at 24 hours, sputum culture is pending. The patient was supported with supplemental oxygen via nasal cannula; maintaining oxygen saturations in the mid to high 90s. Despite recommendations for BiPAP, the patient adamantly declined. He remained afebrile throughout his admission, however, WBCs are increased to 20.5 today. Cardiology was consulted for evaluation and management of CHF exacerbation, elevated troponin, and hypertension. Patient received IV furosemide with adequate diuresis and was transitioned to his home dose. His home dose amiodarone, amlodipine, lisinopril, and spironolactone were continued. Dr. Flores started the patient on Imdur as well. Blood pressures were improved to 123/85 prior to patient leaving. Unfortunately, the patient's troponins continue to trend upward with a troponin of 0.299 this morning. Therefore, cardiology recommended the patient be o bserved an additional 24 hours. When informed of this, the patient left AGAINST MEDICAL ADVICE. Patient left the building prior to my being able to meet with him to personally explained the risks of leaving AGAINST MEDICAL ADVICE. He also did not receive updated prescriptions to include the newly added Imdur or antibiotics for treatment of his community-acquired pneumonia. Anticipate the patient will require readmission in the immediate future.
== END 2019-05-26 11:25 | disposition left against medical advice (07) | DRG 193 ==
LOC: ER 09:15 → EH 15:32 → 3S 18:25 → OBSVTOIN 05-25 13:47
PROVIDERS: ADMIT Internal Medicine; ATTEND Internal Medicine
DX: J18.9 Pneumonia, unspecified organism (principal); I50.23 Acute on chronic systolic (congestive) heart failure; I43 Cardiomyopathy in diseases classified elsewhere; I11.0 Hypertensive heart disease with heart failure; I25.10 Atherosclerotic heart disease of native coronary artery without angina pectoris; F14.10 Cocaine abuse, uncomplicated; F11.10 Opioid abuse, uncomplicated; F12.10 Cannabis abuse, uncomplicated; M54.5 Low back pain; R79.89 Other specified abnormal findings of blood chemistry; E78.5 Hyperlipidemia, unspecified; F17.200 Nicotine dependence, unspecified, uncomplicated; M19.90 Unspecified osteoarthritis, unspecified site; Z95.810 Presence of automatic (implantable) cardiac defibrillator; Z91.19 Patient's noncompliance with other medical treatment and regimen; I25.2 Old myocardial infarction
CPT/HCPCS: 36415; 51701; 71046; 71275; 74177; 80048; 80053; 80076; 80307; 81001; 82550; 82962; 83690; 83880; 84439; 84443; 84481; 84484; 85025; 85027; 87040; 87070; 87077; 87186; 87205; 93005; 93010; 94640; 94660; 96374; 96375; 99285; G0378; J0360; J0456; J0696; J1630; J1644; J1940; J2270; J2405; J3490; J7060; J7620